=== PATIENT | female | born 1955 | race African-American/Black ===

== ENCOUNTER 2022-04-21 10:18 | Outpatient (CLI) | payer MEDICARE, MEDICAID, SELFPAY ==
[2022-04-21 10:34] LABS: Basophils Percent Auto 0.4 % (0.2-1.2); Eosinophils Percent Auto 0.1 % (0-4.4); Hematocrit 30.1 % (37.0-47.0); Hemoglobin 8.6 g/dL (12.0-15.0); Immature Granulocyte Absolute 0.02 K/mm3 (0.00-0.031); Immature Granulocyte Percent A 0.2 % (0-0.5); Lymphocytes Absolute Auto 6.41 K/mm3 (0.9-3.2); Lymphocytes Percent Auto 59.7 % (18.3-44.2); Mean Corpuscular HGB Conc 28.6 g/dl (32-36); Mean Platelet Volume 10.1 fl (7.4-10.4); Monocytes Absolute Auto 0.6 K/mm3 (0.1-0.6); Monocytes Percent Auto 5.7 % (2.6-8.5); Neutrophils Absolute Auto 3.6 K/mm3 (1.3-6.7); Neutrophils Percent Auto 33.9 % (45.5-73.1); Platelet Count Result 234 k/mm3 (150-375); Red Blood Count 3.91 M/mm3 (4.2-5.4); Red Cell Distribution Width 15.9 % (11.5-14.5); White Blood Count 10.7 K/mm3 (4.5-10.0)
[2022-04-21 10:39] LABS: Atypical Lymphocytes Present; Hypochromasia 1+ (NORMAL); Platelet Estimate Adequate (Adequate); Schistocytes None Seen (NORMAL)
[2022-04-21 11:37] LABS: Iron 13 ug/dL (37-170)
[2022-04-21 11:49] LABS: Percent Iron Saturation 5 % (20-50)
[2022-04-21 12:04] LABS: Alanine Aminotransferase 9 U/L (6-35); Albumin Level 4.1 g/dL (3.5-5.1); Alkaline Phosphatase 96 U/L (38-126); Anion Gap 7 mmol/L (8-16); Aspartate Amino Transferase 18 U/L (14-36); Bilirubin,Total 0.4 mg/dL (0.2-1.3); Blood Urea Nitrogen 13 mg/dL (7-17); Carbon Dioxide 28 mmol/L (22-30); Chloride 104 mmol/L (98-107); Estimated Glomerular Filt Rate > 60; Glucose 114 mg/dL (65-110); Sodium 139 mmol/L (137-145)
== END 2022-04-21 10:19 | disposition home or self-care (01) ==
LOC: ANHLAB 10:22
PROVIDERS: Visit Provider Internal Medicine Hematology & Oncology
DX: R59.1 Generalized enlarged lymph nodes (principal)
CPT/HCPCS: 36415; 80053; 82607; 82728; 83540; 83550; 85025; 88184

== ENCOUNTER 2022-04-28 12:03 | Outpatient (CLI) | payer MEDICARE, MEDICAID, SELFPAY ==
--- NOTE | ~2022-04-28 | PE_ITS ---
EXAMINATION: PET skull to mid thigh DATE: 04/28/2022 14:14 INDICATION: Lymphadenopathy. Gastric wall thickening. TECHNIQUE: Blood glucose level was 101 mg/dL. 10.421 mCi of 18-fluorodeoxyglucose (18-FDG) was admini stered i.v. Low dose computed tomography (CT) images were acquired from the base of the brain to the proximal thighs for attenuation correction and anatomic localization. Positron emission tomography (P ET) images were acquired in the same distribution beginning 66 minutes after injection. Images includ ing fused PET/CT images were reconstructed in axial, coronal, and sagittal planes. Automated exposure control technique was employed. The dose-length product was 481.20mGy-cm. COMPARISON: Chest CT dated 03/10/[address] abdomen and pelvis dated 09/25/2008 FINDINGS: Head/neck: There is symmetric increased activity in the oral cavity, palatine tonsils, parotid glands, submandi bular glands, laryngeal muscles and ocular muscles without CT correlate, likely physiologic. Mild FDG uptake associated with a few still normal sized bilateral cervical lymph nodes. The largest and most FDG avid bilaterally are located along the jugular chains deep to the angle of the mandible, each me asuring 8-9 mm with maximal SUV of 3.9 on both the left and right. Chest: Lungs are clear with no suspicious pulmonary nodules, pneumonia, pulmonary edema or pleural effusion. Heart size is normal. No pericardial effusion. Atherosclerotic coronary artery calcific location. Th oracic aorta is normal in caliber. Calcified right hilar lymph nodes consistent with old granulomatou s disease.There are multiple bilateral mildly enlarged and FDG avid axillary lymph nodes with maximal SUV of 4.8 cm with a 10 mm short axis diameter left axillary lymph node and with maximal SUV of 4.6 cm relatively round 1.4 similar right axillary lymph node. FDG avid right paratracheal lymph nodes, t he more cephalad measuring 12 mm in short axis diameter with maximal SUV of 4.0 in the more caudal me asuring 9 mm in maximal short axis diameter with maximal SUV of 4.1. Vertical band of mild increased FDG uptake with maximal SUV of 4.0 situated between the lateral margin of the inferior scapular body and the chest wall which is without radiologic correlate most consistent with scapulothoracic bursiti s. Abdomen/pelvis/proximal thighs: Splenomegaly measuring 15.0 x 13.8 x 9.6 cm with diffuse increased FDG uptake with maximal SUV of 4.7 . There are a few splenic calcific lesions consistent with old granulomatous disease. Physiologic bladimir al accumulation and excretion of FDG activity in the kidneys, bladder and along portions of ureters. Normal degree and heterogenous pattern of increased uptake throughout the liver without radiologic co rrelate or dominant FDG avid lesion. The gallbladder, pancreas, spleen and bilateral adrenal glands a re normal. Mild to moderate uptake scattered throughout the bowels without radiologic correlate, also likely physiologic. There are few colonic diverticula without adjacent from trace stranding to sugge st diverticular colitis. No bowel obstruction. Uterus and bilateral adnexa are unremarkable. No free intraperitoneal gas or fluid. Multiple FDG avid periportal, portacaval and gastrohepatic lymph nodes which are difficult to clearly distinguish from the surrounding vessels and soft tissue for accurate measurement on CT. Maximal SUV values range from 4.0-4.5. There are additional bilateral FDG avid in guinal lymph nodes, the largest common iliac chain lymph nodes measure 1.3 cm in maximal short axis d iameter with maximal SUV of 4.6 on the left and 1.2 cm with maximal SUV of 5.1 on the right. Musculoskeletal: No suspicious lytic, blastic or FDG avid bone lesions. IMPRESSION: 1. Mild increased FDG uptake associated with multiple normal-sized to mildly enlarged lymph nodes rel atively symmetrically in the neck, chest, abdo
[2022-04-28 12:35] LABS: Glucose Point of Care 101 mg/dl (65-105)
== END 2022-04-28 12:04 | disposition home or self-care (01) ==
LOC: ANHIMG 12:04
PROVIDERS: Visit Provider Internal Medicine Hematology & Oncology
DX: R59.1 Generalized enlarged lymph nodes (principal)
CPT/HCPCS: 78815; A9552

== ENCOUNTER 2022-05-25 00:34 | Day surgery (SDC) | payer MEDICARE, MEDICAID, SELFPAY ==
[2022-05-12 12:58] VITALS: BMI 21.7
[2022-05-25 13:16] LABS: Glucose Point of Care 69 mg/dl (65-105)
[2022-05-25 13:21] VITALS: BP 122/87; PULSE 114; RESP 20; TEMP 36.3; O2SAT 100
[2022-05-25] MEDS: LACTATED RINGERS 1,000 ML 150 ML IV CONT (13:22)
[2022-05-25] MEDS: DEXTROSE 50% 25 GM/50 ML SYRINGE IV PUSH (13:23)
--- NOTE | 2022-05-25 13:29 | PM.HPGS ---
History of Present Illness History of Present Illness Consent: Risks, benefits, and alternatives have been discussed and questions answered. Patient agrees to proceed with procedure. Chief complaint: gastric wall thickening, LATRICE Narrative: Malaika Larson is a 67 year old female with recent diagnosis of lymphoma and anemia, seeing hem-onc still not on any treatment. Imaging found thickening of stomach, never had scopes. Review of Systems Constitutional: Constitutional: Denies headache(s) and Denies weakness Eyes: Eyes: Denies blurry vision ENT: Reports Normal hearing present, Denies headache(s) and Denies neck pain Cardiovascular: Cardiovascular: Denies chest pain and Denies dyspnea Respiratory: Respiratory: Denies dyspnea Gastrointestinal: Gastrointestinal: Reports no additional gastrointestinal complaints Genitourinary: Genitourinary: Denies dysuria Musculoskeletal: Musculoskeletal: Denies neck pain Integumentary/Breasts: Skin/Breast: Denies dry skin Neurologic: Reports Normal hearing present, Denies headache(s) and Denies weakness Psychiatric: Psychiatric: Denies anxiety Endocrine: Endocrine: Denies change in body appearance Hematologic/Lymphatic: Hematologic/Lymphatic: Denies easy bleeding Allergic/Immunologic: Allergic/Immunologic: Denies urticaria PMFSH Past Medical History Medical History (Updated 05/25/22 @ 13:30 by Frank Kamara MD) Colon cancer screening Lymphoma Social History Social History Years smoked: 50 Smoking status: Current every day smoker Tobacco type: cigarettes Spiritual care concerns: No Meds Home Medications and Allergies Home Medications Medication Instructions Recorded Confirmed Type budesonide-formoterol HFA 160 2 puff inhalation BID 05/12/22 05/12/22 History mcg-4.5 mcg/actuation aerosol inhaler (Symbicort) ergocalciferol (vitamin D2) 1,250 1,250 mcg PO WEEKLY 05/12/22 05/12/22 History mcg (50,000 unit) capsule ferrous sulfate 325 mg (65 mg 325 mg PO BID 05/12/22 05/12/22 History iron) tablet (FeroSul) insulin glargine 100 unit/mL (3 20 unit subcut HS 05/12/22 05/12/22 History mL) subcutaneous pen (Lantus Solostar U-100 Insulin) omeprazole 20 mg capsule,delayed 20 mg PO BID 05/12/22 05/12/22 History release rosuvastatin 5 mg tablet 5 mg PO DAILY 05/12/22 05/12/22 History sitagliptin phos 100 mg-metformin 1 tablet PO DAILY 05/12/22 05/12/22 History ER 1,000 mg tablet,extend rel 24h mp (Janumet XR) tiotropium bromide 05/12/22 History Allergies Allergy/AdvReac Type Severity Reaction Status Date / Time codeine Allergy Mild Itching Verified 05/25/22 13:17 Sulfa (Sulfonamide Allergy Mild Itching Verified 05/25/22 13:17 Antibiotics) Vital Signs Vital Signs - 24 hr 05/25/22 13:21 Temperature 97.3 F L Pulse Rate 114 H Respiratory Rate 20 Blood Pressure 122/87 Pulse Oximetry 100 Oxygen Delivery Room Air Exam Const: General: comfortable and no acute distress HENMT: Face/Nose/Sinus: Normal nares present Eyes: General: appearance normal, both eyes and all related structures Neck: Neck: no JVD Resp: Auscultation: clear to auscultation bilaterally Cardio: Rate: regular rate Rhythm: regular rhythm GI: Inspection: non-distended GI Palp: Yes Soft to palpation Skin: General skin exam: normal color Neuro: General: gait normal Speech: normal speech Extrem: General: normal to inspection Psych: Mental Status: mental status grossly normal Assessment and Plan Assessment and plan (1) LATRICE (iron deficiency anemia): Code(s): D50.9 - Iron deficiency anemia, unspecified Status: Acute Assessment and Plan: egd and colonoscopy (2) Lymphoma: Code(s): C85.90 - Non-Hodgkin lymphoma, unspecified, unspecified site Status: Acute Assessment and Plan: by oncology (3) Colon cancer screening: Code(s): Z12.11 - Encounter for screening f
--- NOTE | 2022-05-25 13:30 | P.PNAN_ITS ---
Anes - Initial Pre Proc Eval Procedure: Operation Date: 05/25/22 14:30 Proposed Procedures p Esophagogastroduodenoscopy & Colonoscopy - Frank Kamara MD Date/Time: 05/25/22 13:30 Surgeon: Frank Kamara MD Pre Op Diagnosis: gastric wall thickening, LATRICE Patient Data Age: 67 Gender: F Height: 1.7 m Weight: 64 kg Last Vital Signs Temp 97.3 F L 05/25/22 13:21 Pulse 114 H 05/25/22 13:21 Resp 20 05/25/22 13:21 BP 122/87 05/25/22 13:21 Pulse Ox 100 05/25/22 13:21 O2 Del Method Room Air 05/25/22 13:21 Allergies Allergy/AdvReac Type Severity Reaction Status Date / Time codeine Allergy Mild Itching Verified 05/25/22 13:17 Sulfa (Sulfonamide Allergy Mild Itching Verified 05/25/22 13:17 Antibiotics) Home Medications Medication Instructions Recorded Confirmed Type budesonide-formoterol HFA 160 2 puff inhalation BID 05/12/22 05/12/22 History mcg-4.5 mcg/actuation aerosol inhaler (Symbicort) ergocalciferol (vitamin D2) 1,250 1,250 mcg PO WEEKLY 05/12/22 05/12/22 History mcg (50,000 unit) capsule ferrous sulfate 325 mg (65 mg 325 mg PO BID 05/12/22 05/12/22 History iron) tablet (FeroSul) insulin glargine 100 unit/mL (3 20 unit subcut HS 05/12/22 05/12/22 History mL) subcutaneous pen (Lantus Solostar U-100 Insulin) omeprazole 20 mg capsule,delayed 20 mg PO BID 05/12/22 05/12/22 History release rosuvastatin 5 mg tablet 5 mg PO DAILY 05/12/22 05/12/22 History sitagliptin phos 100 mg-metformin 1 tablet PO DAILY 05/12/22 05/12/22 History ER 1,000 mg tablet,extend rel 24h mp (Janumet XR) tiotropium bromide 05/12/22 History Laboratory Tests 05/25/22 13:11 POC Capillary Glucose 69 mg/dl mg/dl (65-105) Patient hx anesthesia problems: none Family hx anesthesia problems: none Results Review: All pre-operative results and documents have been reviewed as part of the pre- operative evaluation. [facility] Past Medical History Medical History (Updated 05/25/22 @ 13:30 by Frank Kamara MD) Colon cancer screening Lymphoma Social History Social History Years smoked: 50 Smoking status: Current every day smoker Tobacco type: cigarettes Spiritual care concerns: No Anes - Eval Final PreProcedure Day of Procedure 05/25/22 13:30 Patient weight: normal Heart: regular rate and rhythm Lungs: clear to auscultation Airway: Mallampati scale class II Neurological: alert and oriented Last oral intake: >/= 8 hours ASA classification: III Emergent: no Anesthetic plan: proceed Anesthesia type and monitoring: general GIVS and standard monitoring Results Review: All pre-operative results and documents have been reviewed as part of the pre- operative evaluation. Informed Consent: The patient's anesthetic plan and its attendant risks and benefits were discussed with the patient/family/POA. Questions were solicited and answers provided to the satisfaction of the patient/family/POA.
--- NOTE | 2022-05-25 13:48 | SUR.OPER ---
EGD start 1344 end COLON start 1354 end 1406
[2022-05-25 14:10] VITALS: BP 96/60; PULSE 112; RESP 24; O2SAT 100
[2022-05-25 14:20] VITALS: BP 105/55; PULSE 109; RESP 25; O2SAT 100
[2022-05-25 14:24] LABS: Glucose Point of Care 93 mg/dl (65-105)
[2022-05-25 14:30] VITALS: BP 112/58; PULSE 99; RESP 23; O2SAT 100
== END 2022-05-25 14:40 | disposition home or self-care (01) ==
PROVIDERS: Visit Provider Internal Medicine Gastroenterology
PROC: 0DJ08ZZ Inspection of Upper Intestinal Tract, Via Natural or Artificial Opening Endoscopic (ICD-10-PCS; CPT 43235; principal; 2022-05-25 14:30)
DX: Z12.11 Encounter for screening for malignant neoplasm of colon (principal); K57.30 Diverticulosis of large intestine without perforation or abscess without bleeding; K29.50 Unspecified chronic gastritis without bleeding; D64.9 Anemia, unspecified; C85.90 Non-Hodgkin lymphoma, unspecified, unspecified site; Z79.4 Long term (current) use of insulin; Z79.51 Long term (current) use of inhaled steroids; Z79.84 Long term (current) use of oral hypoglycemic drugs; F17.210 Nicotine dependence, cigarettes, uncomplicated
CPT/HCPCS: 43239; G0121; 82948; 88305; 88342; J2704; J7120